=== PATIENT | female | born 1965 | race Caucasian/White ===

== ENCOUNTER 2017-07-07 12:19 | Emergency (ER) | payer OTHER ==
[~2017-07-07] VITALS: Ht 167.6 cm; Wt 71.7 kg
--- NOTE | 2017-07-07 12:20 | NUR ---
IFRAH FROM HOME DT SEVERE ABDOMINAL PAIN, 10/10 X 2 HOURS. PATIENT ON SP CHOLECYSTECTOMY 10 DAYS AGO. PATIENT IS AFEBRILE. NO CHILLS NOTED. VSS
[2017-07-07] MEDS ORDERED: ONDANSETRON HCL/PF 4 MG/2 ML VIAL ONE (12:39)
[2017-07-07] MEDS ORDERED: HYDROMORPHONE INJ 2 MG/ML DISP.SYRIN ONE ×2 (12:40→13:52)
--- NOTE | 2017-07-07 12:44 | NUR ---
PATIENT MEDICATED ORDERED
[2017-07-07 12:55] LABS: BASOPHILS % (AUTO) 0.4 % (0.0-2.0); EOSINOPHILS # (AUTO) 0.4 /CMM (0.0-0.7); EOSINOPHILS % (AUTO) 3.8 % (0.0-6.0); HEMATOCRIT 38 % (33-45); HEMOGLOBIN 12.3 g/dL (11.5-14.8); LYMPHOCYTES # (AUTO) 2.9 /CMM (0.8-4.8); MEAN CORPUSCULAR HEMOGLOBIN 26 PG (26.0-33.0); MEAN CORPUSCULAR HGB CONC 32 g/dl (31.0-36.0); MEAN CORPUSCULAR VOLUME 81 fL (82-100); MONOCYTES # (AUTO) 0.5 /CMM (0.1-1.30); MONOCYTES % (AUTO) 5.1 % (2.0-12.0); NEUTROPHILS # (AUTO) 6.5 /CMM (1.8-8.9); NEUTROPHILS % (AUTO) 62.7 % (43.0-81.0); PLATELET COUNT (AUTO) 410 /CMM (150-450); RDW COEFFICIENT OF VARIATION 14.7 (11.5-15.0); RED BLOOD CELL COUNT(AUTO) 4.75 MIL/uL (4.0-5.2); WHITE BLOOD COUNT (AUTO) 10.4 K/uL (4.3-11.0)
[2017-07-07] MEDS ORDERED: ONDANSETRON HCL/PF 4 MG/2 ML VIAL IVP ONE (13:00)
[2017-07-07] MEDS ORDERED: IV NS 0.9% 1,000 ML BAG IV ONE (13:00)
[2017-07-07] MEDS ORDERED: HYDROMORPHONE INJ 2 MG/ML DISP.SYRIN IV ONE (13:00)
[2017-07-07 13:20] LABS: ALBUMIN 3.2 g/dL (3.4-5.0); BILIRUBIN,DIRECT 0.1 mg/dL (0.0-0.2); BILIRUBIN,TOTAL 0.6 mg/dL (0.2-1.0); CALCIUM, SERUM 9.8 mg/dL (8.5-10.1); CREATININE 0.8 mg/dL (0.6-1.3); POTASSIUM 3.5 mmol/L (3.5-5.1); TOTAL PROTEIN, SERUM 7.5 g/dL (6.4-8.2)
[2017-07-07 13:23] LABS: INR 0.89 (0.87-1.13); PROTHROMBIN TIME 9.2 SECS (9.5-12.7)
[2017-07-07] MEDS ORDERED: IV NS 0.9% 250 ML IV ONE (13:30)
[2017-07-07] MEDS ORDERED: IOHEXOL-300 100 ML VIAL IV ONE (13:30)
[2017-07-07] MEDS ORDERED: HYDROMORPHONE 1 MG/1 ML DISP.SYRIN IV ONE (14:00)
[2017-07-07 14:30] LABS: APPEARANCE,URINE CLEAR (CLEAR); BILIRUBIN,URINE NEGATIVE (NEGATIVE); BLOOD, URINE 1+ Ery/uL (NEGATIVE); COLOR,URINE YELLOW (YELLOW); KETONES,URINE NEGATIVE (NEGATIVE); LEUKOCYTE ESTERASE ,URINE NEGATIVE (NEGATIVE); NITRITE, URINE NEGATIVE (NEGATIVE); PROTEIN,URINE NEGATIVE (NEGATIVE); UGLUCOSE NEGATIVE (NEGATIVE); UROBILINOGEN,URINE 0.2 EU/dL (0.2)
[2017-07-07 14:50] LABS: BACTERIA,URINE Few /HPF (None Seen); SQUAMOUS EPITHELIAL CELL,UR Moderate /HPF (None Seen)
[2017-07-07] MEDS ORDERED: oxyCODONE/APAP (5/325 MG) 1 UDTAB TABLET ONE (14:59)
[2017-07-07] MEDS ORDERED: oxyCODONE/APAP (5/325 MG) 1 UDTAB TABLET PO ONE (15:00)
[2017-07-07 15:03] VITALS: BP 140/82
--- NOTE | 2017-07-07 15:03 | NUR ---
Patient discharged to home in stable condition. Written and verbal after care instructions given. Patient verbalizes understanding of instruction.
== END 2017-07-07 15:05 | disposition home or self-care (01) ==
LOC: ER 12:20
DX: G89.18 Other acute postprocedural pain (principal); R10.10 Upper abdominal pain, unspecified; K59.00 Constipation, unspecified; J90 Pleural effusion, not elsewhere classified; Z90.49 Acquired absence of other specified parts of digestive tract
CPT/HCPCS: 36415; 74160; 80048; 80076; 81001; 83690; 85025; 85730; 96361; 96374; 96375; 96376; 99285; A4606; J1170 ×2; J2405; J7030; J7050; Q9967; Z7610; 81000-TC

== ENCOUNTER 2017-07-07 17:38 | Inpatient (IN) | payer OTHER ==
[~2017-07-07] VITALS: Ht 167.6 cm; Wt 71.7 kg
--- NOTE | 2017-07-07 17:40 | NUR ---
BIBFAMILY FROM HOME DT SEVERE ABDOMINAL PAIN, 05/31. PATIENT WAS IN ED EARLIER FOR THE SAME REASON. PATIENT ON SP CHOLECYSTECTOMY 10 DAYS AGO. PATIENT IS AFEBRILE. NO CHILLS NOTED. VSS
--- NOTE | 2017-07-07 17:41 | NUR ---
MARYSOL STILL NOTED WITH GREENISH SECRETION
[2017-07-07] MEDS ORDERED: ONDANSETRON HCL/PF 4 MG/2 ML VIAL ONE ×2 (17:46→21:17)
[2017-07-07] MEDS ORDERED: HYDROMORPHONE INJ 2 MG/ML DISP.SYRIN ONE ×2 (17:46→20:33)
[2017-07-07] MEDS ORDERED: HYDROMORPHONE INJ 2 MG/ML DISP.SYRIN IV ONE (18:00)
[2017-07-07] MEDS ORDERED: ONDANSETRON HCL/PF - ER 4 MG/2 ML VIAL IV ONE (18:00)
[2017-07-07] MEDS ORDERED: IV NS 0.9% 1,000 ML BAG IV ONE (18:00)
--- NOTE | 2017-07-07 18:29 | NUR ---
BED- MS 322-2
[2017-07-07] MEDS ORDERED: MINERAL OIL 133 ML (PYXIS) 1 EA ENEMA RC ONE ×2 (19:36→20:30)
[2017-07-07 20:00] VITALS: BP 154/97
--- NOTE | 2017-07-07 20:20 | NUR ---
REPORT GIVEN TO NBA BECKMAN FOR SANDRINE
[2017-07-07] MEDS ORDERED: Z GUARD REMEDY 2 OZ OINT TP PRN (20:30)
[2017-07-07] MEDS ORDERED: MAGNESIUM HYDROXIDE 30 ML UDC PO PRN (20:30)
[2017-07-07] MEDS ORDERED: LACTULOSE 10 G/15 ML UDC (PYXIS) PO ONE (20:30)
[2017-07-07] MEDS ORDERED: HYDROCODONE/APAP 5/325MG 1 EACH TABLET PO PRN (20:30)
[2017-07-07] MEDS ORDERED: HYDROMORPHONE 1 MG/1 ML DISP.SYRIN IV ONE (20:30)
[2017-07-07] MEDS ORDERED: ACETAMINOPHEN 325 MG TABLET PO PRN (20:30)
[2017-07-07] MEDS ORDERED: MAG HYDROX/AL HYDROX/SIMETH 30 ML UDC PO PRN (20:30)
[2017-07-07] MEDS ORDERED: ZOLPIDEM TARTRATE 5 MG TABLET PO PRN (20:30)
[2017-07-07] MEDS ORDERED: LACTULOSE 10 G/15 ML UDC (PYXIS) ONE (21:16)
[2017-07-07] MEDS: ONDANSETRON HCL/PF 4 MG/2 ML VIAL IVP PRN (21:19)
--- NOTE | 2017-07-07 21:20 | NUR ---
MS RN NOTES PT C/O CONSTIPATION. MOM GIVEN ORDERED. WILL CONTINUE TO MONITOR
[2017-07-07] MEDS: IV NS 0.9% 1,000 ML IV PRN (21:48)
--- NOTE | 2017-07-08 03:13 | NUR ---
MS RN NOTES DR RACHID MILNER CAME IN AND SEEN PT WITH NEW ORDERS TO PLACE NGT TO LIS. ORDERS NOTED AND CARRIED OUT. PLACED PT ON NGT TO LIS. PT TOLERATED WELL. WILL CONTINUE TO MONITOR.
[2017-07-08] MEDS ORDERED: LEVOFLOXACIN 750 MG /D5W 150ML 150 ML IV ONE (03:38)
[2017-07-08] MEDS: LEVOFLOXACIN 750 MG /D5W 150ML 750 MG in PREMIX 1 EA IV SCH (03:41)
[2017-07-08] MEDS ORDERED: MAGNESIUM HYDROXIDE 30 ML UDC ONE (05:50)
--- NOTE | 2017-07-08 05:50 | NUR ---
MS RN NOTES PT REQUESTING NGT TO BE D/CD. PT REQUEST ONLY MEDS FOR CONSTIPATION. PT UNABLE TO TOLERATE NGT AT THIS TIME. CALLED DR RASHID. NOTIFIED HER RE PT'S CONDITION. WITH NEW ORDERS TO D/C NGT AND GIVE MOM DAILY PRN ORDERED. WILL CONTINUE TO MONITOR.
[2017-07-08] MEDS: MAGNESIUM HYDROXIDE 30 ML UDC PO PRN ×2 (05:51→21:35)
--- NOTE | 2017-07-08 06:42 | NUR ---
MS RN NOTES AWAKE & RESPONSIVE. NOT IN ANY DISTRESS. NO SOB NOTED. DENIES ANY PAIN OR DISCOMFORT AT THIS TIME. WITH IVF INFUSING WELL. MONITORED ACCORDINGLY. CALL LIGHT WITHIN REACH. BED IN LOWEST POSITION. SR UP X 2 FOR SAFETY. WILL ENDORSE TO NEXT SHIFT.
[2017-07-08 07:19] LABS: EOSINOPHILS % (AUTO) 0.3 % (0.0-6.0); HEMATOCRIT 33 % (33-45); HEMOGLOBIN 10.9 g/dL (11.5-14.8); LYMPHOCYTES # (AUTO) 1.5 /CMM (0.8-4.8); LYMPHOCYTES % (AUTO) 10.8 % (20.0-44.0); MEAN CORPUSCULAR HEMOGLOBIN 26 PG (26.0-33.0); MEAN CORPUSCULAR HGB CONC 33 g/dl (31.0-36.0); MEAN CORPUSCULAR VOLUME 80 fL (82-100); NEUTROPHILS # (AUTO) 11.5 /CMM (1.8-8.9); NEUTROPHILS % (AUTO) 81.9 % (43.0-81.0); PLATELET COUNT (AUTO) 370 /CMM (150-450); RDW COEFFICIENT OF VARIATION 14.3 (11.5-15.0); RED BLOOD CELL COUNT(AUTO) 4.13 MIL/uL (4.0-5.2)
[2017-07-08 07:32] LABS: CALCIUM, SERUM 9.5 mg/dL (8.5-10.1); CREATININE 0.8 mg/dL (0.6-1.3); INR 0.91 (0.87-1.13); MAGNESIUM 1.8 mg/dL (1.8-2.4); PHOSPHORUS 2.4 mg/dL (2.5-4.9); POTASSIUM 3.9 mmol/L (3.5-5.1); PROTHROMBIN TIME 9.5 SECS (9.5-12.7)
--- NOTE | 2017-07-08 07:35 | NUR ---
RN NOTES RECEIVED PATIENT AWAKE ALERT AND VERBALLY RESPONSIVE, COMFORTABLY IN BED, EASILY, ABLE TO MAKE NEEDS KNOWN. RESPIRATIONS EVEN AND UNLABORED, DENIES ANY PAIN OR DISCOMFORT AT THIS TIME. IV ACCESS PATENT AND INTACT NO REDNESS OR INFILTRATION NOTED. SAFETY MEASURES IN PLACE, KEPT CLEAN DRY AND COMFORTABLE CALL LIGHT WITHIN EASY REACH, WILL CONTINUE TO MONITOR
[2017-07-08 08:00] VITALS: BP 134/81
[2017-07-08] MEDS: PANTOPRAZOLE 40 MG VIAL IV SCH (08:31)
[2017-07-08] MEDS: DOCUSATE SODIUM 100 MG CAPSULE PO SCH ×2 (08:31→16:58)
[2017-07-08] MEDS ORDERED: MAGNESIUM CITRATE 296 ML BOTTLE PO ONE (13:00)
[2017-07-08] MEDS ORDERED: NEUTRA PHOS 1 POWD.PACKET NG ONE (15:00)
[2017-07-08 16:00] VITALS: BP 132/79
[2017-07-08] MEDS: ONDANSETRON HCL/PF 4 MG/2 ML VIAL IVP PRN (16:59)
[2017-07-08] MEDS: IV NS 0.9% 1,000 ML IV PRN (18:29)
--- NOTE | 2017-07-08 19:30 | NUR ---
MS RN OPENING NOTES: RECEIVED PATIENT AWAKE, ALERT AND VERBALLY RESPONSIVE. PT IN RESTROOM AT THIS TIME. RESPIRATIONS EVEN AND UNLABORED. DENIES ANY PAIN OR DISCOMFORT AT THIS TIME. IV ACCESS PATENT AND INTACT. NO REDNESS OR INFILTRATION NOTED. MARYSOL DRAIN NOTED AT RUQ. SAFETY MEASURES IN PLACE, KEPT CLEAN, DRY, AND COMFORTABLE. CALL LIGHT WITHIN PT'S REACH. WILL CONTINUE TO MONITOR PT. Addendum: 07/08/17 at 5 by JONATHAN PACE RN DAUGHTER AT BEDSIDE. PT IS TO BE INFUSED WITH NS AT 75ML/HR.
--- NOTE | 2017-07-08 19:43 | NUR ---
RN NOTES PATIENT AWAKE ALERT AND VERBALLY RESPONSIVE, COMFORTABLY IN BED, EASILY, ABLE TO MAKE NEEDS KNOWN. RESPIRATIONS EVEN AND UNLABORED, DENIES ANY PAIN OR DISCOMFORT AT THIS TIME. IV ACCESS PATENT AND INTACT NO REDNESS OR INFILTRATION NOTED. SAFETY MEASURES IN PLACE, KEPT CLEAN DRY AND COMFORTABLE CALL LIGHT WITHIN EASY REACH, ENDORSED TO NEXT SHIFT FOR CONTINUITY OF CARE
[2017-07-08 20:00] VITALS: BP 138/79
--- NOTE | 2017-07-08 21:31 | NUR ---
MS RN NOTES: SPOKE WITH DR. RACHID Leary AND INFORMED HER THAT THE MOM ON THE ORDER IS EVERY 24HRS. PT IS REQUESTING IT FOR HER CONSTIPATION. SHE SAID OK TO GIVE TO PT NOW.
[2017-07-09] MEDS: LEVOFLOXACIN 750 MG /D5W 150ML 750 MG in PREMIX 1 EA IV SCH (02:56)
[2017-07-09] MEDS: ONDANSETRON HCL/PF 4 MG/2 ML VIAL IVP PRN (04:10)
--- NOTE | 2017-07-09 06:18 | NUR ---
MS RN NOTES: PT IS REFUSING BLOOD DRAW. EXPLAINED TO PT THE PURPOSE OF BLOOD DRAW AND PT IS STILL REFUSING. PT BELIEVES SHE IS GOING TO BE DISCHARGED TODAY. EXPLAINED TO PT THAT IT IS POSSIBLE BUT NO ORDERS HAVE BEEN PUT IN. PT STILL REFUSING. CHARGE NURSE AWARE.
--- NOTE | 2017-07-09 07:24 | NUR ---
MS RN CLOSING NOTES: ALL NEEDS WERE ATTENDED AND ANTICIPATED FOR. PT IS SITTING UP IN BED AND IS WATCHING TELEVISION. PT DISCONNECTED FROM IV FLUIDS TO USE THE RESTROOM. RESPIRATIONS EVEN AND UNLABORED. DENIES ANY PAIN OR DISCOMFORT AT THIS TIME. IV ACCESS PATENT AND INTACT ON R HAND. NO REDNESS OR INFILTRATION NOTED. MRAYSOL DRAIN NOTED AT RUQ. SAFETY MEASURES IN PLACE, KEPT CLEAN, DRY, AND COMFORTABLE. BED KEPT IN LOW, LOCKED POSITION, AND SIDE RAILS X 2UP. CALL LIGHT WITHIN PT'S REACH. ENDORSED TO AM NURSE FOR SANDRINE.
--- NOTE | 2017-07-09 07:26 | NUR ---
MS RN OPENING NOTES RECEIVED PATIENT IN STABLE CONDITION. PATIENT IS RESTING IN BED. BEDSIDE RAILS ARE UP X2. BED IS LOCKED AND LOWERED. CALL LIGHT IS WITHIN REACH. WILL CONTINUE TO MONITOR.
[2017-07-09 08:00] VITALS: BP 136/83
[2017-07-09] MEDS: PANTOPRAZOLE 40 MG VIAL IV SCH (08:11)
[2017-07-09] MEDS: DOCUSATE SODIUM 100 MG CAPSULE PO SCH (08:11)
--- NOTE | 2017-07-09 12:30 | NUR ---
REMOVED PATIENTS IV. REMOVED WRIST BANDS. ALL MEETS WERE MET. EDUCATION PROVIDED.
--- NOTE | 2017-07-09 12:44 | NUR ---
PATIENT WAS DISCHARGED IN STABLE CONDITION. WALKED HER TO HER CAR. IS DRIVING.
== END 2017-07-09 12:13 | disposition home or self-care (01) | DRG 254 ==
LOC: ER 17:40 → MED 20:24
PROVIDERS: ADMIT Internal Medicine; ATTEND Internal Medicine
DX: K59.03 Drug induced constipation (principal); J90 Pleural effusion, not elsewhere classified; D72.829 Elevated white blood cell count, unspecified; F17.200 Nicotine dependence, unspecified, uncomplicated; K44.9 Diaphragmatic hernia without obstruction or gangrene; Z90.49 Acquired absence of other specified parts of digestive tract; Z86.011 Personal history of benign neoplasm of the brain; Z98.890 Other specified postprocedural states; T40.605A Adverse effect of unspecified narcotics, initial encounter; Y92.009 Unspecified place in unspecified non-institutional (private) residence as the place of occurrence of the external cause
CPT/HCPCS: 36415; 71010-TC; 80048-TC; 80061-TC; 83735-TC; 84100-TC; 85025-TC; 85610-TC; 87040-TC; 87081-TC; 93307-TC; A4216; A4606; A6402; C9113; J1170; J1956; J2405; J7030; J7040; Z7610

== ENCOUNTER 2017-07-27 15:54 | Emergency (ER) | payer OTHER ==
[~2017-07-27] VITALS: Ht 162.6 cm; Wt 69.4 kg
[2017-07-27] MEDS ORDERED: KETOROLAC TROMETHAMINE 15 MG/ML VIAL ONE ×2 (16:41→16:46)
[2017-07-27] MEDS ORDERED: ONDANSETRON HCL/PF 4 MG/2 ML VIAL ONE (16:41)
[2017-07-27] MEDS ORDERED: oxyCODONE/APAP (5/325 MG) 1 UDTAB TABLET ONE ×2 (16:42→19:13)
--- NOTE | 2017-07-27 16:57 | NUR ---
epigastric pain x 3 hours; BB daughter to ER for treatement and evaluation
--- NOTE | 2017-07-27 16:57 | NUR ---
pain meds given as ordered
[2017-07-27] MEDS ORDERED: IV NS 0.9% 1,000 ML BAG IV ONE (17:00)
[2017-07-27] MEDS ORDERED: oxyCODONE/APAP (5/325 MG) 1 UDTAB TABLET PO ONE (17:00)
[2017-07-27] MEDS ORDERED: ONDANSETRON HCL/PF 4 MG/2 ML VIAL IVP ONE (17:00)
[2017-07-27] MEDS ORDERED: KETOROLAC TROMETHAMINE INJ 30 MG/ML VIAL IV ONE (17:00)
[2017-07-27 17:19] LABS: BASOPHILS % (AUTO) 0.7 % (0.0-2.0); EOSINOPHILS # (AUTO) 0.1 /CMM (0.0-0.7); EOSINOPHILS % (AUTO) 1.8 % (0.0-6.0); HEMATOCRIT 36 % (33-45); HEMOGLOBIN 11.6 g/dL (11.5-14.8); LYMPHOCYTES # (AUTO) 2.2 /CMM (0.8-4.8); LYMPHOCYTES % (AUTO) 32.7 % (20.0-44.0); MEAN CORPUSCULAR HEMOGLOBIN 25 PG (26.0-33.0); MEAN CORPUSCULAR HGB CONC 32 g/dl (31.0-36.0); MEAN CORPUSCULAR VOLUME 77 fL (82-100); MONOCYTES # (AUTO) 0.4 /CMM (0.1-1.30); MONOCYTES % (AUTO) 5.6 % (2.0-12.0); NEUTROPHILS % (AUTO) 59.2 % (43.0-81.0); PLATELET COUNT (AUTO) 313 /CMM (150-450); RDW COEFFICIENT OF VARIATION 12.6 (11.5-15.0); WHITE BLOOD COUNT (AUTO) 6.7 K/uL (4.3-11.0)
[2017-07-27 17:24] LABS: CALCIUM, SERUM 9.5 mg/dL (8.5-10.1); CREATININE 0.8 mg/dL (0.6-1.3); POTASSIUM 4.2 mmol/L (3.5-5.1)
[2017-07-27 17:28] LABS: INR 0.88 (0.87-1.13); PROTHROMBIN TIME 9.2 SECS (9.5-12.7)
[2017-07-27 17:30] LABS: ALBUMIN 3.3 g/dL (3.4-5.0); BILIRUBIN,DIRECT 0.2 mg/dL (0.0-0.2); BILIRUBIN,TOTAL 0.5 mg/dL (0.2-1.0); TOTAL PROTEIN, SERUM 7.1 g/dL (6.4-8.2)
--- NOTE | 2017-07-27 18:59 | NUR ---
Patient discharged to home in stable condition. Written and verbal after care instructions given. Patient verbalizes understanding of instruction.
--- NOTE | 2017-07-27 18:59 | NUR ---
IV removed. Catheter intact and site benign. Pressure and 4x4 applied to site. No bleeding noted.
[2017-07-27 19:01] VITALS: BP 140/55
== END 2017-07-27 19:02 | disposition home or self-care (01) ==
LOC: ER 15:56
DX: R10.13 Epigastric pain (principal); Z90.49 Acquired absence of other specified parts of digestive tract
CPT/HCPCS: 36415; 76705; 80048; 80076; 83690; 85025; 85730; 96361; 96374; 96375; 99285; A4606; J1885 ×2; J2405; Z7610

== ENCOUNTER 2019-09-26 10:33 | Emergency (ER) | payer OTHER ==
[~2019-09-26] VITALS: Ht 165.1 cm; Wt 66.7 kg
--- NOTE | 2019-09-26 10:40 | NUR ---
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 Patient a/ox4, breathing even and unlabored, no sob noted, kept comfortable.
[2019-09-26] MEDS ORDERED: MORPHINE SULFATE INJ 2 MG/ML DISP.SYRIN IV ONE (11:00)
[2019-09-26] MEDS ORDERED: FAMOTIDINE/PF INJ 20 MG/2 ML VIAL IV ONE ×2 (11:00→11:04)
[2019-09-26] MEDS ORDERED: ONDANSETRON HCL/PF 4 MG/2 ML VIAL IVP ONE (11:00)
[2019-09-26] MEDS ORDERED: IV NS 0.9% 1,000 ML BAG IV ONE (11:00)
[2019-09-26] MEDS ORDERED: ONDANSETRON HCL/PF 4 MG/2 ML VIAL ONE (11:04)
[2019-09-26] MEDS ORDERED: MORPHINE SULFATE INJ 4 MG/ML DISP.SYRIN ONE (11:04)
[2019-09-26 11:06] LABS: BASOPHILS % (AUTO) 0.4 % (0.0-2.0); HEMATOCRIT 40 % (33-45); LYMPHOCYTES # (AUTO) 1.5 /CMM (0.8-4.8); LYMPHOCYTES % (AUTO) 17.3 % (20.0-44.0); MEAN CORPUSCULAR HGB CONC 33 g/dl (31.0-36.0); MEAN CORPUSCULAR VOLUME 80 fL (82-100); MONOCYTES # (AUTO) 0.6 /CMM (0.1-1.30); MONOCYTES % (AUTO) 6.6 % (2.0-12.0); NEUTROPHILS # (AUTO) 6.4 /CMM (1.8-8.9); NEUTROPHILS % (AUTO) 75.7 % (43.0-81.0); PLATELET COUNT (AUTO) 195 /CMM (150-450); RED BLOOD CELL COUNT(AUTO) 4.97 MIL/uL (4.0-5.2); WHITE BLOOD COUNT (AUTO) 8.5 K/uL (4.3-11.0)
[2019-09-26 11:14] LABS: CALCIUM, SERUM 9.4 mg/dL (8.5-10.1); CARBON DIOXIDE 25 mmol/L (21-32); CHLORIDE 103 mmol/L (98-107); GLUCOSE 136 mg/dL (74-106); POTASSIUM 3.7 mmol/L (3.5-5.1); SODIUM SERUM 138 mmol/L (136-145); UREA NITROGEN, BLOOD 11 mg/dL (7-18)
[2019-09-26 11:19] LABS: ALANINE AMINOTRANSFERASE 93 U/L (12-78); ALBUMIN 3.4 g/dL (3.4-5.0); ALKALINE PHOSPHATASE 478 U/L (46-116); ASPARTATE AMINOTRANSFERASE 97 U/L (15-37); BILIRUBIN,DIRECT 0.3 mg/dL (0.0-0.2); BILIRUBIN,TOTAL 0.7 mg/dL (0.2-1.0); LIPASE 219 U/L (73-393); TOTAL PROTEIN, SERUM 7.3 g/dL (6.4-8.2)
[2019-09-26] MEDS ORDERED: DEXAMETHASONE SOD PHOSPHATE 10 MG/ML VIAL IM ONE (13:30)
[2019-09-26] MEDS ORDERED: DEXAMETHASONE SOD PHOSPHATE 10 MG/ML VIAL ONE (13:33)
--- NOTE | 2019-09-26 14:07 | NUR ---
IV removed. Catheter intact and site benign. Pressure and 4x4 applied to site. No bleeding noted.Patient discharged to home in stable condition. Written and verbal after care instructions given. Patient verbalizes understanding of instruction.
[2019-09-26 14:10] VITALS: BP 126/78
== END 2019-09-26 14:11 | disposition home or self-care (01) ==
LOC: ER 10:33
DX: R10.10 Upper abdominal pain, unspecified (principal); R10.13 Epigastric pain; Z90.49 Acquired absence of other specified parts of digestive tract; Z98.890 Other specified postprocedural states
CPT/HCPCS: 36415; 80048; 80076; 83690; 84484; 85025; 93005; 96372; 96374; 96375; 99284; J1100; J2270; J2405; J3490; J7030

== ENCOUNTER 2021-04-23 16:43 | Emergency (ER) | payer OTHER ==
[~2021-04-23] VITALS: Ht 165.1 cm; Wt 70.8 kg
[2021-04-23 16:50] VITALS: BP 129/79
--- NOTE | 2021-04-23 16:53 | NUR ---
TO ER BED 1, C/O HIVES AND ITCHINESS ALL OVER BODY FOR 4DAYS, A&OX4, BREATHING EVEN AND UNLABORED, AWAITING MD BARRIOS
[2021-04-23] MEDS ORDERED: methylPREDNISolone SOD SUCC 125 MG/2ML VIAL ONE (17:43)
[2021-04-23] MEDS ORDERED: diphenhydrAMINE HCL 50 MG/ML VIAL ONE (17:43)
[2021-04-23] MEDS ORDERED: FAMOTIDINE/PF INJ 20 MG/2 ML VIAL IV ONE (17:44)
[2021-04-23] MEDS: diphenhydrAMINE HCL 50 MG/ML VIAL IV ONE (17:51)
[2021-04-23] MEDS: FAMOTIDINE/PF INJ 20 MG/2 ML VIAL IV ONE (17:52)
[2021-04-23] MEDS: methylPREDNISolone SOD SUCC 125 MG/2ML VIAL IV ONE (17:52)
[2021-04-23] MEDS: IV NS 0.9% 1,000 ML BAG IV ONE (17:52)
[2021-04-23] MEDS ORDERED: FAMO-131 PO (18:39)
[2021-04-23] MEDS ORDERED: DIPH25CA83 PO (18:39)
[2021-04-23] MEDS ORDERED: PRED20TA PO (18:39)
== END 2021-04-23 19:21 | disposition home or self-care (01) ==
LOC: ER 16:47
DX: L50.8 Other urticaria (principal); Z90.49 Acquired absence of other specified parts of digestive tract; Z79.899 Other long term (current) drug therapy
CPT/HCPCS: 96361; 96374; 96375; 99284; J1200; J2930; J3490; J7030